=== PATIENT | male | born 1950 | race Caucasian/White ===

== ENCOUNTER → 2019-11-03 15:08 | Outpatient (BNVA) | payer OTHER, SELFPAY | PROVIDERS: Family Provider Family Medicine; PCP Family Medicine; Visit Provider Urology | DX: R97.20 Elevated prostate specific antigen [PSA] (principal); R33.9 Retention of urine, unspecified | CPT/HCPCS: 81001; 84153 ==

== ENCOUNTER → 2020-05-03 15:19 | Outpatient (BNVA) | payer OTHER, SELFPAY | PROVIDERS: Family Provider Family Medicine; PCP Family Medicine; Visit Provider Urology | DX: R97.20 Elevated prostate specific antigen [PSA] (principal); R33.9 Retention of urine, unspecified | CPT/HCPCS: 81003; 84153 ==

== ENCOUNTER → 2021-06-14 12:54 | Outpatient (BNVA) | payer OTHER, SELFPAY | PROVIDERS: Family Provider Family Medicine; PCP Family Medicine; Visit Provider Urology | DX: R97.20 Elevated prostate specific antigen [PSA] (principal); R33.9 Retention of urine, unspecified | CPT/HCPCS: 81003; 84153 ==

== ENCOUNTER → 2021-12-05 14:00 | Outpatient (BNVA) | payer OTHER, SELFPAY | PROVIDERS: Family Provider Family Medicine; PCP Family Medicine; Visit Provider Internal Medicine | DX: E55.9 Vitamin D deficiency, unspecified (principal); E11.22 Type 2 diabetes mellitus with diabetic chronic kidney disease; N18.30 Chronic kidney disease, stage 3 unspecified; E11.65 Type 2 diabetes mellitus with hyperglycemia; E78.2 Mixed hyperlipidemia | CPT/HCPCS: 80061; 82306; 83036 ==

== ENCOUNTER → 2022-03-20 14:38 | Outpatient (BNVA) | payer OTHER, SELFPAY | PROVIDERS: Family Provider Family Medicine; PCP Family Medicine; Visit Provider Family Medicine | DX: E55.9 Vitamin D deficiency, unspecified (principal); E78.2 Mixed hyperlipidemia; E11.65 Type 2 diabetes mellitus with hyperglycemia; R03.0 Elevated blood-pressure reading, without diagnosis of hypertension | CPT/HCPCS: 80053; 80061; 82306; 83036 ==

== ENCOUNTER → 2022-05-27 15:54 | Outpatient (BNVA) | payer OTHER, SELFPAY | PROVIDERS: Family Provider Family Medicine; PCP Family Medicine; Visit Provider Internal Medicine | DX: E11.65 Type 2 diabetes mellitus with hyperglycemia (principal); E78.2 Mixed hyperlipidemia; E11.22 Type 2 diabetes mellitus with diabetic chronic kidney disease; N18.30 Chronic kidney disease, stage 3 unspecified; E55.9 Vitamin D deficiency, unspecified; R03.0 Elevated blood-pressure reading, without diagnosis of hypertension; Z71.3 Dietary counseling and surveillance | CPT/HCPCS: 36415; 80053; 80061; 83036; 84681; 86337; 86341 ==

== ENCOUNTER 2022-06-12 16:03 | Outpatient (CLI) | payer OTHER, SELFPAY ==
[2022-06-12 17:52] LABS: Prostate Specific AG Urology 3.65 ng/mL (0-4)
== END 2022-06-12 16:04 | disposition home or self-care (01) ==
PROVIDERS: PCP Family Medicine; Visit Provider Urology
DX: R97.20 Elevated prostate specific antigen [PSA] (principal)
CPT/HCPCS: 36415; 84153

== ENCOUNTER → 2022-06-13 15:16 | Outpatient (BNVA) | payer OTHER, SELFPAY | PROVIDERS: PCP Family Medicine; Visit Provider Urology | DX: R97.20 Elevated prostate specific antigen [PSA] (principal); N40.1 Benign prostatic hyperplasia with lower urinary tract symptoms; R33.9 Retention of urine, unspecified | CPT/HCPCS: 81003 ==

== ENCOUNTER → 2022-09-09 15:31 | Outpatient (BNVA) | payer OTHER, SELFPAY | PROVIDERS: PCP Family Medicine; Visit Provider Family Medicine | DX: E11.65 Type 2 diabetes mellitus with hyperglycemia (principal); E78.2 Mixed hyperlipidemia | CPT/HCPCS: 80053; 80061; 82043; 83036 ==

== ENCOUNTER → 2023-04-04 07:39 | Outpatient (BNVA) | payer OTHER, SELFPAY | PROVIDERS: PCP Family Medicine; Visit Provider Family Medicine | DX: E11.22 Type 2 diabetes mellitus with diabetic chronic kidney disease (principal); E11.65 Type 2 diabetes mellitus with hyperglycemia; E55.9 Vitamin D deficiency, unspecified; N18.30 Chronic kidney disease, stage 3 unspecified; E78.2 Mixed hyperlipidemia; R03.0 Elevated blood-pressure reading, without diagnosis of hypertension; Z71.3 Dietary counseling and surveillance; R97.20 Elevated prostate specific antigen [PSA] | CPT/HCPCS: 80053; 80061; 82043; 82306; 83036 ==

== ENCOUNTER 2023-07-18 09:38 | Outpatient (CLI) | payer OTHER, SELFPAY ==
[2023-07-18 10:48] LABS: Estmated Average Glucose 258; Hemoglobin A1C 10.6 % (4.0-6.0)
== END 2023-07-18 09:39 | disposition home or self-care (01) ==
PROVIDERS: PCP Family Medicine; Visit Provider Student in an Organized Health Care Education/Training Program
DX: E11.9 Type 2 diabetes mellitus without complications (principal); Z79.4 Long term (current) use of insulin
CPT/HCPCS: 36415; 83036

== ENCOUNTER 2023-08-29 09:48 | Outpatient (CLI) | payer OTHER, SELFPAY ==
[2023-08-29 10:41] LABS: Urine Creatinine 108 mg/dL (39-259)
[2023-08-29 10:46] LABS: Total Protein, Random Urine 65.6 mg/dL (0.0-20.0)
[2023-08-29 10:53] LABS: Anion Gap 15.4 (5-19); Blood Urea Nitrogen 33 mg/dL (8-23); Calcium 8.9 mg/dL (8.5-10.5); Carbon Dioxide 24 mmol/L (22-29); Chloride 105 mmol/L (98-107); Glucose 166 mg/dL (65-115); Magnesium 1.7 mg/dL (1.7-2.3); Osmolality Calculated 301 mOsm/kg (285-295); Potassium 4.4 mmol/L (3.5-5.1); Sodium 140 mmol/L (136-145); Uric Acid 6.6 mg/dL (3.4-7.0)
[2023-08-29 11:00] LABS: Parathyroid Hormone 44.7 pg/mL (15-65)
[2023-08-29 11:23] LABS: Add Urine Microscopic? YES; Bilirubin Urine Neg (Negative); Blood Urine Neg (Negative); Glucose Urine UA Norm (Normal); Ketones Urine Negative (Negative); Leukocyte Esterase Urine Trace (Negative); Nitrate Urine Negative (Negative); Protein Urine 1+ (Negative); Specific Gravity, Urine 1.015 (1.005-1.030); Urine Appearance Clear (CLEAR); Urine Color Light yellow (Yellow); Urobilinogen Urine Neg (Negative); pH Urine 5 (5-7)
[2023-08-29 11:26] LABS: Add Urine Culture? No; Bacteria Urine TRACE /hpf; RBC Urine RARE /hpf (0-2); Squamous Epithelial Cell Urine RARE /hpf (0-5); WBC Urine 0-4 /hpf (0-5)
== END 2023-08-29 09:49 | disposition home or self-care (01) ==
LOC: LAB 09:49
PROVIDERS: PCP Family Medicine; Visit Provider Internal Medicine
DX: N18.32 Chronic kidney disease, stage 3b (principal); M10.9 Gout, unspecified; N15.9 Renal tubulo-interstitial disease, unspecified
CPT/HCPCS: 36415; 80048; 81001; 82310; 82570; 83735; 83970; 84100; 84156; 84550

== ENCOUNTER 2023-10-03 07:56 | Outpatient (CLI) | payer OTHER, SELFPAY ==
--- NOTE | 2023-10-03 08:13 | CT_ITS ---
WS: [id number] CT ABDOMEN AND PELVIS WITH AND WITHOUT CONTRAST HISTORY: ASYMPTOMATIC MICROSCOPIC HEMATURIA/MARY TECHNIQUE: Unenhanced 5 mm axial imaging first performed through the abdomen and pelvis. Post contras t imaging through the abdomen and pelvis. Oral contrast has not been provided. Sagittal and coronal reformats are submitted. All CT scans at [facility] use at least one of these dose optimizati on techniques: automated exposure control; mA and/or kV adjustment per patient size (includes targete d exams where dose is matched to clinical indication); or iterative reconstruction. CONTRAST: Omnipaque 350; 95 mL IV. DLP: 708.83 mGy.cm COMPARISON: None available. Benign granulomata lower lung rolle. No mass or consolidation. Small hiatal hernia. RIGHT kidney: Normal size with no calcification or obstruction. Normal ureter. There are a few scatte red too small to characterize hypodensities in the renal cortex. No obstruction. LEFT kidney: Normal size with no calcification or obstruction. There are few tiny cortical hypodensit ies which are too small to characterize. No solid mass is identified. Normal liver and spleen. Normal portal vein. Normal gallbladder and normal adrenal glands. Marked atr ophy of the pancreas. Diffuse pancreatic calcifications. Pancreatic duct is mildly prominent. There i s no common bile duct dilatation. 6 mm cyst at the anterior pancreatic head. This does appear to conn ect with the duct and is may be related to an IPMN. Moderate atherosclerosis aorta. Normally distended stomach. No small bowel obstruction. Diffuse constipation. Normal appendix. No asc ites. No adenopathy. Prostate gland is enlarged and heterogeneous encroaching into the urinary bladder. No bladder mass id entified. Inguinal canals are patent bilaterally. No destructive bone lesions. IMPRESSION: 1. No hydronephrosis or renal calcifications. 2. No solid renal mass. There are bilateral too small to characterize hypodensities within the kellen x of each kidney. 3. No ureteral obstruction or calcification. 4. Enlarged prostate encroaching into the urinary bladder. No bladder mass identified. 5. Moderate diffuse constipation. 6. Severe pancreatic atrophy with calcifications associated with chronic pancreatitis. 6 mm cystic m ass at the anterior pancreatic head. Differential includes main duct IPMN and nodular cystic componen t of the dilated pancreatic duct. Consider 6-month pancreatic CT evaluation for total of 2 years to d ocument long-term stability.
[2023-10-03] MEDS: iohexol 350 mg/mL 500 mL Btl (per mL) IV (08:36)
[2023-10-03 09:05] LABS: Alanine Aminotransferase 20 U/L (0-41); Albumin Level 3.6 g/dL (3.5-5.2); Alkaline Phosphatase 85 U/L (40-130); Anion Gap 11.7 (5-19); Aspartate Amino Transferase 11 U/L (0-40); Blood Urea Nitrogen 39 mg/dL (8-23); Calcium 8.8 mg/dL (8.5-10.5); Carbon Dioxide 25 mmol/L (22-29); Chloride 101 mmol/L (98-107); Chol HDL Ratio 3.49 mg/dL (1.0-5.00); Cholesterol 164 mg/dL (0-200); Globulin 2.6 g/dL (1.3-4.6); Glucose 225 mg/dL (65-115); HDL Cholesterol 47 mg/dL (60-100); LDL Cholesterol Calculated 100 mg/dL (50-129); LDL HDL Ratio 2.13 RATIO (0.00-3.22); Osmolality Calculated 292 mOsm/kg (285-295); Potassium 4.7 mmol/L (3.5-5.1); Sodium 133 mmol/L (136-145); Total Bilirubin 0.5 mg/dL (0.15-1.2); Total Protein 6.2 g/dL (6.6-8.7); Triglycerides 87 mg/dL (0-150)
[2023-10-03 09:06] LABS: Creatinine Urine, Random 76 mg/dL (39-259); Microalbumin Random Urine 36 ug/dL (0-20)
[2023-10-03 09:08] LABS: Estmated Average Glucose 260; Hemoglobin A1C 10.7 % (4.0-6.0)
[2023-10-03 09:10] LABS: Microalbum Creatinine Ratio Ur 474 mg/dL (0-20)
== END 2023-10-03 07:57 | disposition home or self-care (01) ==
PROVIDERS: PCP Family Medicine; Visit Provider Urology
DX: N17.9 Acute kidney failure, unspecified (principal); R31.21 Asymptomatic microscopic hematuria; E11.65 Type 2 diabetes mellitus with hyperglycemia; N40.0 Benign prostatic hyperplasia without lower urinary tract symptoms
CPT/HCPCS: 36415; 74178; 80053; 80061; 82044; 83036; Q9967

== ENCOUNTER → 2023-10-10 10:46 | Outpatient (BNVA) | payer OTHER, SELFPAY | PROVIDERS: PCP Family Medicine; Visit Provider Internal Medicine | DX: E11.65 Type 2 diabetes mellitus with hyperglycemia (principal); R03.0 Elevated blood-pressure reading, without diagnosis of hypertension; Z79.899 Other long term (current) drug therapy | CPT/HCPCS: 80053; 84681; 86337; 86341 ==

== ENCOUNTER → 2024-01-16 07:30 | Outpatient (BNVA) | payer MEDICARE, OTHER, SELFPAY | PROVIDERS: PCP Family Medicine; Visit Provider Internal Medicine | DX: M79.89 Other specified soft tissue disorders (principal); E11.65 Type 2 diabetes mellitus with hyperglycemia; R03.0 Elevated blood-pressure reading, without diagnosis of hypertension; E11.22 Type 2 diabetes mellitus with diabetic chronic kidney disease; N18.30 Chronic kidney disease, stage 3 unspecified; E55.9 Vitamin D deficiency, unspecified; Z71.3 Dietary counseling and surveillance; H26.9 Unspecified cataract; Z79.4 Long term (current) use of insulin | CPT/HCPCS: 99214 ==

== ENCOUNTER 2024-01-16 08:38 | Outpatient (CLI) | payer MEDICARE, OTHER, SELFPAY ==
--- NOTE | 2024-01-16 09:00 | USCV_ITS ---
Tony Paul Age: 73 Gender: M : 1950 Exam Date: 01/16/2024 09:03 Ordering Phys: Christiane Mejia MD Technologist: [employer] [place]am Location[place] [facility] [place] Indication: PROCEDURES: Venous duplex imaging was performed in only the right lower extremity. On the right side, the common femoral, superficial femoral, profunda femoral, popliteal, posterior tibial, greater saphenous veins and the peroneal trunk were identified and interrogated in the standard fashion. These veins were found to be easily compressible with spontaneous blood flow. No evidence of insufficiency or thrombus noted. FINDINGS: No dvt CONCLUSIONS No evidence of right lower extremity DVT. Jitendra Mckinley MD (Electronically Signed) Final Date: 16 January 2024 11:38 S
== END 2024-01-16 08:39 | disposition home or self-care (01) ==
LOC: RAD 08:38
PROVIDERS: PCP Family Medicine; Visit Provider Internal Medicine
DX: M79.89 Other specified soft tissue disorders (principal)
CPT/HCPCS: 93971

== ENCOUNTER → 2024-02-27 09:21 | Outpatient (BNVA) | payer MEDICARE, OTHER, SELFPAY | PROVIDERS: PCP Family Medicine; Visit Provider Internal Medicine | DX: E11.65 Type 2 diabetes mellitus with hyperglycemia (principal); E11.22 Type 2 diabetes mellitus with diabetic chronic kidney disease; N18.30 Chronic kidney disease, stage 3 unspecified; E55.9 Vitamin D deficiency, unspecified; E78.2 Mixed hyperlipidemia; Z79.84 Long term (current) use of oral hypoglycemic drugs; Z79.4 Long term (current) use of insulin | CPT/HCPCS: 99214 ==

== ENCOUNTER 2024-04-07 14:35 | Outpatient (CLI) | payer MEDICARE, SELFPAY ==
--- NOTE | 2024-04-07 14:37 | XRR_ITS ---
PROCEDURE INFORMATION: Exam: XR Right Foot Exam date and time: 04/07/2024 2:43 PM Age: 73 years old Clinical indication: Patient HX: Anterior right ankle/foot pain and swelling x 2 wks, no specific injury; Additional info: Right foot pain swelling w/o trauma not responding to tx TECHNIQUE: Imaging protocol: Radiologic exam of the right foot. Views: 3 or more views. COMPARISON: CR XR ankle RT min 3V* [id number] 04/07/2024 2:43 PM FINDINGS: Bones/joints: Bones are diffusely osteopenic. Joint alignment is normal. There is a minimally displaced oblique mid diaphyseal fracture of the 2nd metatarsal. There is slight apex dorsal angulation at the fracture site. There is ill-defined periosteal new bone formation at the mid 2nd metatarsal fracture site. There is subtle deformity of the proximal 3rd phalanx suggesting healed fracture. Moderate severe osteoarthritis at the ankle is partially imaged. Soft tissues: There is diffuse dorsal soft tissue edema in the foot. XR/XR foot RT min 3V* [id number] IMPRESSION: Minimally displaced subacute fracture of the mid 2nd metatarsal.
--- NOTE | 2024-04-07 14:37 | XRR_ITS ---
PROCEDURE INFORMATION: Exam: XR Right Ankle Exam date and time: 04/07/2024 2:43 PM Age: 73 years old Clinical indication: Patient HX: Anterior right ankle/foot pain and swelling x 2 wks, no specific injury; Additional info: Right foot pain swelling w/o trauma not responding to tx TECHNIQUE: Imaging protocol: Radiologic exam of the right ankle. Views: 3 or more views. COMPARISON: CR XR foot RT min 3V* [id number] 04/07/2024 2:43 PM FINDINGS: Bones/joints: There is a chronic ununited transverse fracture at the medial malleolus. Lateral malleolus is intact. Ankle mortise alignment is normal. There is mild anterior tibiotalar joint space narrowing. There are moderate tibiotalar osteophytes. There is 3 mm focal subchondral lucency in lateral talar dome. No visible ankle joint effusion. No acute fracture. Minimally displaced 2nd metatarsal diaphyseal fracture is partially imaged. Soft tissues: There is diffuse soft tissue edema in the dorsum of the foot and surrounding the ankle. XR/XR ankle RT min 3V* [id number] IMPRESSION: 1. No acute findings at the ankle. 2. 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 3. Chronic ununited fracture of medial malleolus. 4. Subtle 3 mm lesion in the lateral talar dome. Possible osteochondral lesion without evidence of instability. 5. 2nd metatarsal fracture is incompletely imaged. See foot radiographs.
== END 2024-04-07 14:36 | disposition home or self-care (01) ==
LOC: RAD 14:36
PROVIDERS: PCP Family Medicine; Visit Provider Family Medicine
DX: Z12.5 Encounter for screening for malignant neoplasm of prostate (principal); R97.20 Elevated prostate specific antigen [PSA]; S92.321A Displaced fracture of second metatarsal bone, right foot, initial encounter for closed fracture; M85.80 Other specified disorders of bone density and structure, unspecified site; M19.071 Primary osteoarthritis, right ankle and foot; S82.54XA Nondisplaced fracture of medial malleolus of right tibia, initial encounter for closed fracture; M25.771 Osteophyte, right ankle; S92.141A Displaced dome fracture of right talus, initial encounter for closed fracture; X58.XXXA Exposure to other specified factors, initial encounter
CPT/HCPCS: 73610; 73630; G0103

== ENCOUNTER → 2024-04-12 15:48 | Outpatient (BNVA) | payer MEDICARE, SELFPAY | PROVIDERS: PCP Family Medicine; Visit Provider Podiatrist Foot & Ankle Surgery | DX: S92.321A Displaced fracture of second metatarsal bone, right foot, initial encounter for closed fracture (principal); E11.65 Type 2 diabetes mellitus with hyperglycemia; X58.XXXA Exposure to other specified factors, initial encounter; Z79.4 Long term (current) use of insulin | CPT/HCPCS: 99203 ==

== ENCOUNTER → 2024-05-14 08:33 | Outpatient (BNVA) | payer MEDICARE, SELFPAY | PROVIDERS: PCP Family Medicine; Visit Provider Family Medicine | DX: E11.65 Type 2 diabetes mellitus with hyperglycemia (principal); E11.22 Type 2 diabetes mellitus with diabetic chronic kidney disease; N18.30 Chronic kidney disease, stage 3 unspecified | CPT/HCPCS: 80053; 80061; 82043; 83036 ==

== ENCOUNTER → 2024-05-21 08:34 | Outpatient (BNVA) | payer MEDICARE, SELFPAY | PROVIDERS: PCP Family Medicine; Visit Provider Podiatrist Foot & Ankle Surgery | DX: S92.321A Displaced fracture of second metatarsal bone, right foot, initial encounter for closed fracture (principal); E11.65 Type 2 diabetes mellitus with hyperglycemia; X58.XXXA Exposure to other specified factors, initial encounter; Z79.4 Long term (current) use of insulin; E11.22 Type 2 diabetes mellitus with diabetic chronic kidney disease; E55.9 Vitamin D deficiency, unspecified; E78.2 Mixed hyperlipidemia; N18.30 Chronic kidney disease, stage 3 unspecified | CPT/HCPCS: 73630; 99213; 99214 ==

== ENCOUNTER → 2024-07-16 08:47 | Outpatient (BNVA) | payer MEDICARE, OTHER, SELFPAY | PROVIDERS: PCP Family Medicine; Visit Provider Internal Medicine | DX: E11.65 Type 2 diabetes mellitus with hyperglycemia (principal); E78.2 Mixed hyperlipidemia; E11.22 Type 2 diabetes mellitus with diabetic chronic kidney disease; N18.30 Chronic kidney disease, stage 3 unspecified; E55.9 Vitamin D deficiency, unspecified | CPT/HCPCS: 99214 ==

== ENCOUNTER 2024-08-31 14:39 | Outpatient (CLI) | payer MEDICARE, OTHER, SELFPAY ==
[2024-08-31 16:25] LABS: Prostate Specific Antigen Scr 4.17 ng/mL (0-4)
== END 2024-08-31 14:40 | disposition home or self-care (01) ==
PROVIDERS: PCP Family Medicine; Visit Provider Internal Medicine
DX: Z12.5 Encounter for screening for malignant neoplasm of prostate (principal); R97.20 Elevated prostate specific antigen [PSA]
CPT/HCPCS: 36415; G0103

== ENCOUNTER 2024-09-02 14:53 | Outpatient (CLI) | payer MEDICARE, OTHER, SELFPAY ==
[2024-09-02 16:22] LABS: Anion Gap 16.5 (5-19); Blood Urea Nitrogen 34 mg/dL (8-23); Calcium 9.1 mg/dL (8.5-10.5); Carbon Dioxide 22 mmol/L (22-29); Chloride 105 mmol/L (98-107); Glucose 131 mg/dL (65-115); Osmolality Calculated 297 mOsm/kg (285-295); Potassium 4.5 mmol/L (3.5-5.1); Sodium 139 mmol/L (136-145); Uric Acid 5.7 mg/dL (3.4-7.0)
[2024-09-02 16:40] LABS: Calcium 9.2 mg/dL (8.5-10.5)
[2024-09-02 16:41] LABS: Parathyroid Hormone 53.3 pg/mL (15-65)
[2024-09-02 17:04] LABS: Creatinine Urine, Random 92 mg/dL (39-259)
[2024-09-02 17:23] LABS: Microalbum Creatinine Ratio Ur 685 mg/dL (0-20); Microalbumin Random Urine 63 ug/dL (0-20)
== END 2024-09-02 14:54 | disposition home or self-care (01) ==
PROVIDERS: PCP Family Medicine; Visit Provider Internal Medicine
DX: N15.9 Renal tubulo-interstitial disease, unspecified (principal); N18.32 Chronic kidney disease, stage 3b; M10.9 Gout, unspecified
CPT/HCPCS: 36415; 80048; 82044; 82310; 83970; 84550

== ENCOUNTER → 2024-10-04 14:05 | Outpatient (BNVA) | payer MEDICARE, OTHER, SELFPAY | PROVIDERS: PCP Family Medicine; Visit Provider Family Medicine | DX: E11.65 Type 2 diabetes mellitus with hyperglycemia (principal); E78.2 Mixed hyperlipidemia | CPT/HCPCS: 80053; 80061; 82043; 83036 ==

== ENCOUNTER → 2024-10-14 07:28 | Outpatient (BNVA) | payer MEDICARE, OTHER, SELFPAY | PROVIDERS: PCP Family Medicine; Visit Provider Internal Medicine | DX: E11.65 Type 2 diabetes mellitus with hyperglycemia (principal); E78.2 Mixed hyperlipidemia; E11.22 Type 2 diabetes mellitus with diabetic chronic kidney disease; E55.9 Vitamin D deficiency, unspecified | CPT/HCPCS: 99214 ==

== ENCOUNTER → 2025-01-10 09:22 | Outpatient (BNVA) | payer MEDICARE, OTHER, SELFPAY | PROVIDERS: PCP Family Medicine; Visit Provider Internal Medicine | DX: E11.22 Type 2 diabetes mellitus with diabetic chronic kidney disease (principal); N18.30 Chronic kidney disease, stage 3 unspecified; E55.9 Vitamin D deficiency, unspecified; E78.2 Mixed hyperlipidemia | CPT/HCPCS: 99214 ==

== ENCOUNTER → 2025-03-29 15:15 | Outpatient (BNVA) | payer MEDICARE, OTHER, SELFPAY | PROVIDERS: PCP Family Medicine; Visit Provider Family Medicine | DX: E78.2 Mixed hyperlipidemia (principal); E11.22 Type 2 diabetes mellitus with diabetic chronic kidney disease; N18.30 Chronic kidney disease, stage 3 unspecified; E11.65 Type 2 diabetes mellitus with hyperglycemia; E55.9 Vitamin D deficiency, unspecified; Z79.84 Long term (current) use of oral hypoglycemic drugs; Z79.4 Long term (current) use of insulin | CPT/HCPCS: 80053; 80061; 83036 ==

== ENCOUNTER → 2025-05-19 14:00 | Outpatient (BNVA) | payer MEDICARE, OTHER, SELFPAY | PROVIDERS: PCP Family Medicine; Visit Provider Podiatrist Foot & Ankle Surgery | DX: E11.8 Type 2 diabetes mellitus with unspecified complications (principal); L60.3 Nail dystrophy; G62.9 Polyneuropathy, unspecified; Z79.4 Long term (current) use of insulin | CPT/HCPCS: 11721 ==

== ENCOUNTER → 2025-05-30 14:24 | Outpatient (BNVA) | payer MEDICARE, OTHER, SELFPAY | PROVIDERS: PCP Family Medicine; Visit Provider Internal Medicine Endocrinology, Diabetes & Metabolism | DX: E11.22 Type 2 diabetes mellitus with diabetic chronic kidney disease (principal); N18.30 Chronic kidney disease, stage 3 unspecified; E11.65 Type 2 diabetes mellitus with hyperglycemia; E55.9 Vitamin D deficiency, unspecified; E78.2 Mixed hyperlipidemia; R03.0 Elevated blood-pressure reading, without diagnosis of hypertension | CPT/HCPCS: 99214 ==

== ENCOUNTER → 2025-06-06 14:37 | Outpatient (BNVA) | payer MEDICARE, OTHER, SELFPAY | PROVIDERS: PCP Family Medicine; Visit Provider Family Medicine | DX: E78.2 Mixed hyperlipidemia (principal); E55.9 Vitamin D deficiency, unspecified; E11.22 Type 2 diabetes mellitus with diabetic chronic kidney disease; N18.30 Chronic kidney disease, stage 3 unspecified; E11.65 Type 2 diabetes mellitus with hyperglycemia | CPT/HCPCS: 80053; 83036 ==